=== PATIENT | male | born 1985 | race Caucasian/White ===

== ENCOUNTER 2017-03-29 19:27 | Emergency (ER) | payer OTHER ==
[~2017-03-29] VITALS: Ht 160 cm; Wt 70.0 kg
[~2017-03-29 19:27] MED LIST: LEVE500 PO
[2017-03-29 19:58] VITALS: BP 139/102; PULSE 140; RESP 20; TEMP 98.1; O2SAT 98
[2017-03-29 20:23] LABS: AUTOMATED NEUTROPHIL # 5.5 TH/MM3 (1.8-7.7); BASOPHIL # 0.1 TH/MM3 (0-0.2); BASOPHIL % 0.7 % (0.0-2.0); EOSINOPHIL # 0.1 TH/MM3 (0-0.4); EOSINOPHIL % 0.6 % (0.0-4.0); HEMATOCRIT 48.2 % (39.0-51.0); HEMOGLOBIN 16.4 GM/DL (13.0-17.0); LYMPH % 29.3 % (9.0-44.0); LYMPHOCYTE # 2.6 TH/MM3 (1.0-4.8); MEAN CELL VOLUME 89.8 FL (80.0-100.0); MEAN CORPUSCULAR HEMOGLOBIN 30.5 PG (27.0-34.0); MEAN PLATELET VOLUME 9.6 FL (7.0-11.0); MONO % 7.8 % (0.0-8.0); MONOCYTE # 0.7 TH/MM3 (0-0.9); NEUT % 61.6 % (16.0-70.0); PLATELET COUNT 207 TH/MM3 (150-450); RED BLOOD COUNT 5.37 MIL/MM3 (4.50-5.90); RED CELL DISTRIBUTION WIDTH 15.6 % (11.6-17.2)
[2017-03-29 21:01] LABS: ALBUMIN 4.3 GM/DL (3.4-5.0); ALKALINE PHOSPHATASE 92 U/L (45-117); ALT (GPT) 102 U/L (12-78); AST (GOT) 93 U/L (15-37); BLOOD UREA NITROGEN 9 MG/DL (7-18); CALCIUM 8.8 MG/DL (8.5-10.1); CHLORIDE 110 MEQ/L (98-107); CREATININE 0.78 MG/DL (0.60-1.30); GLOMERULAR FILTRATION RATE 116 ML/MIN (>89); GLUCOSE,RANDOM 72 MG/DL (74-106); SODIUM (NA) 142 MEQ/L (136-145); TOTAL BILIRUBIN ADULT 0.3 MG/DL (0.2-1.0); TOTAL PROTEIN 8.1 GM/DL (6.4-8.2)
[2017-03-29 21:02] LABS: ACETAMINOPHEN LESS THAN 2.0 MCG/ML (10.0-30.0)
[2017-03-29 22:35] VITALS: BP 133/59; PULSE 100; RESP 16; TEMP 98.2; O2SAT 95
--- NOTE | 2017-03-29 22:37 | PD ---
HPI Chief Complaint: Psychiatric Symptoms Time Seen by Provider: 20:26 Travel History International Travel<30 days: No Contact w/Intl Traveler<30days: No Traveled to known affect area: No History of Present Illness HPI 31-year-old white male presents emergency Department under Otero act by PD. Patient states that he had told the police magistrate he was going to walk out traffic. The patient states that he's been taking alcohol, smoking crack cocaine. He has been off his bipolar medicines. The patient states that his cousin just 2 weeks ago from overdose. The patient denies any homicidal ideation. He denies any toxic ingestions. Patient states that he has had a runny nose, cough and some slight congestion. No fever chills. No nausea vomiting. No abdominal pain. No shortness of breath or wheezing. PFSH Past Medical History Autoimmune Disease: No Bipolar Disorder: Yes Anxiety: Yes Depression: Yes Cancer: No Cardiovascular Problems: Yes ("HOLE IN HEART") Diabetes: No Diminished Hearing: No GERD: Yes Headaches: Yes Immune Disorder: No Implanted Vascular Access Dvce: No Kidney Stones: Yes Psychiatric: Yes (PTSD) Immunizations Current: Yes Migraines: Yes Schizophrenia: Yes Seizures: Yes Tetanus Vaccination: Unknown Past Surgical History Cardiac Surgery: Yes (PDA- OPEN HEART ) Social History Alcohol Use: Yes Tobacco Use: Yes (1/2 ppd) Substance Use: Yes (cocaine) Allergies-Medications (Allergen,Severity, Reaction): Coded Allergies: codeine (Unverified Allergy, Intermediate, itch, 11/21/16) tramadol (Unverified Allergy, Intermediate, seizures, 11/21/16) Reported Meds & Prescriptions Reported Meds & Active Scripts Active Keppra (Levetiracetam) 500 Mg Tab 500 Mg PO BID Review of Systems General / Constitutional: No: Fever Eyes: No: Visual changes HENT: Positive: Congestion, No: Headaches, Sore Throat, Earache Cardiovascular: No: Chest Pain or Discomfort Respiratory: Positive: Cough, No: Shortness of Breath Gastrointestinal: No: Nausea, Vomiting, Diarrhea, Abdominal Pain Genitourinary: No: Dysuria Musculoskeletal: No: Pain Skin: No Rash Neurologic: No: Weakness Psychiatric: Positive: Depression, Suicidal Ideations, Mood Disorder, Substance Abuse, No: Anxiety, Disorder of Thought, Homicidal Ideation Endocrine: No: Polydipsia Hematologic/Lymphatic: No: Easy Bruising Physical Exam Narrative GENERAL: Well-nourished, well-developed patient. SKIN: Warm and dry. HEAD: Normocephalic and atraumatic. EYES: No scleral icterus. No injection or drainage. ENT: No nasal drainage noted. Mucous membranes pink. Airway patent. NECK: Supple, trachea midline. Moves head freely without obvious discomfort. CARDIOVASCULAR: Regular rate and rhythm without murmurs, gallops, or rubs. RESPIRATORY: Breath sounds equal bilaterally. No accessory muscle use. GASTROINTESTINAL: Abdomen soft, non-tender, nondistended. EXTREMITIES: No cyanosis or edema. BACK: Nontender without obvious deformity. No CVA tenderness. NEURO: Patient is alert and oriented. no sensorimotor deficits. Nonfocal. Normal speech. PSYCH: No delusions. No auditory or visual hallucinations. Data Data Last Documented VS Vital Signs Date Time Temp Pulse Resp B/P (MAP) Pulse Ox O2 Delivery O2 Flow Rate FiO2 03/29/17 19:58 98.1 140 20 139/102 (114) 98 Room Air Orders Orders Complete Blood Count With Diff (03/29/17 19:44) Comprehensive Metabolic Panel (03/29/17 19:44) Psych Screen (03/29/17 19:44) Drug Screen, Random Urine (03/29/17 19:44) Alcohol (Ethanol) (03/29/17 19:44) Salicylates (Aspirin) (03/29/17 19:44) Tylenol (Acetaminophen) (03/29/17 19:44) Levetiracetam (03/29/17 19:44) Labs Laboratory Tests Test 03/29/17 20:00 White Blood Count 9.0 TH/MM3 Red Blood Count 5.37 MIL/MM3 Hemoglobin 16.4 GM/DL Hematocrit 48.2 % Mean Corpuscular Volume 89.8 FL Mean Corpuscular Hemoglobin 30.5 PG Mean Corpuscular Hemoglobin Concent 34.0 % Red Cell Distribution Width 15.6 % Platelet Count 207 TH/MM3 Mean Platelet Volume 9.6 FL Neutrophils (%) (Auto) 61.6 % Lymphocytes (%) (Auto) 29.3 % Monocytes (%) (Auto) 7.8 % Eosinophils (%) (Auto) 0.6 % Basophils (%) (Auto) 0.7 % Neutrophils # (Auto) 5.5 TH/MM3 Lymphocytes # (Auto) 2.6 TH/MM3 Monocytes # (Auto) 0.7 TH/MM3 Eosinophils # (Auto) 0.1 TH/MM3 Basophils # (Auto) 0.1 TH/MM3 CBC Comment DIFF FINAL Differential Comment Blood Urea Nitrogen 9 MG/DL Creatinine 0.78 MG/DL Random Glucose 72 MG/DL Total Protein 8.1 GM/DL Albumin 4.3 GM/DL Calcium Level 8.8 MG/DL Alkaline Phosphatase 92 U/L Aspartate Amino Transf (AST/SGOT) 93 U/L Alanine Aminotransferase (ALT/SGPT) 102 U/L Total Bilirubin 0.3 MG/DL Sodium Level 142 MEQ/L Potassium Level 3.9 MEQ/L Chloride Level 110 MEQ/L Carbon Dioxide Level 21.0 MEQ/L Anion Gap 11 MEQ/L Estimat Glomerular Filtration Rate 116 ML/MIN Salicylates Level 2.1 MG/DL Urine Opiates Screen NEG Acetaminophen Level LESS THAN 2.0 MCG/ML Urine Barbiturates Screen NEG Urine Amphetamines Screen NEG Urine Benzodiazepines Screen NEG Urine Cocaine Screen POS Urine Cannabinoids Screen POS Ethyl Alcohol Level 310 MG/DL MDM Medical Decision Making Medical Screen Exam Complete: Yes Emergency Medical Condition: Yes Medical Record Reviewed: Yes Interpretation(s) Laboratory Tests Test 03/29/17 20:00 White Blood Count 9.0 TH/MM3 Red Blood Count 5.37 MIL/MM3 Hemoglobin 16.4 GM/DL Hematocrit 48.2 % Mean Corpuscular Volume 89.8 FL Mean Corpuscular Hemoglobin 30.5 PG Mean Corpuscular Hemoglobin Concent 34.0 % Red Cell Distribution Width 15.6 % Platelet Count 207 TH/MM3 Mean Platelet Volume 9.6 FL Neutrophils (%) (Auto) 61.6 % Lymphocytes (%) (Auto) 29.3 % Monocytes (%) (Auto) 7.8 % Eosinophils (%) (Auto) 0.6 % Basophils (%) (Auto) 0.7 % Neutrophils # (Auto) 5.5 TH/MM3 Lymphocytes # (Auto) 2.6 TH/MM3 Monocytes # (Auto) 0.7 TH/MM3 Eosinophils # (Auto) 0.1 TH/MM3 Basophils # (Auto) 0.1 TH/MM3 CBC Comment DIFF FINAL Differential Comment Blood Urea Nitrogen 9 MG/DL Creatinine 0.78 MG/DL Random Glucose 72 MG/DL Total Protein 8.1 GM/DL Albumin 4.3 GM/DL Calcium Level 8.8 MG/DL Alkaline Phosphatase 92 U/L Aspartate Amino Transf (AST/SGOT) 93 U/L Alanine Aminotransferase (ALT/SGPT) 102 U/L Total Bilirubin 0.3 MG/DL Sodium Level 142 MEQ/L Potassium Level 3.9 MEQ/L Chloride Level 110 MEQ/L Carbon Dioxide Level 21.0 MEQ/L Anion Gap 11 MEQ/L Estimat Glomerular Filtration Rate 116 ML/MIN Salicylates Level 2.1 MG/DL Urine Opiates Screen NEG Acetaminophen Level LESS THAN 2.0 MCG/ML Urine Barbiturates Screen NEG Urine Amphetamines Screen NEG Urine Benzodiazepines Screen NEG Urine Cocaine Screen POS Urine Cannabinoids Screen POS Ethyl Alcohol Level 310 MG/DL Differential Diagnosis MDM: High Differential diagnoses: Schizophrenia, schizoaffective disorder, bipolar, anxiety, depression, adjustment reaction, mood disorder NOS, ODD, depressive disorder NOS, dementia, dementia with agitation, psychosis NOS, substance induced mood disorder, DMDD, Asperger syndrome, infection,electrolyte abnormality, malingering. Narrative Course Mental health screening discussed with the patient. Psychiatric screen ordered. The patient is been medically cleared. This is medical clearance for psychiatric admission, polysubstance abuse Diagnosis Primary Impression: Medical clearance for psychiatric admission Additional Impression: Polysubstance abuse Condition: Stable Todd Khan Mar 29, 2017 22:37
[2017-03-30 02:14] VITALS: BP 138/63; PULSE 72; RESP 17; O2SAT 97
[2017-03-30 06:21] VITALS: BP 143/62; PULSE 63; RESP 18; TEMP 98.6; O2SAT 96
[2017-03-30] MEDS ORDERED: levETIRAcetam 500 MG TAB PO ONE (07:30)
[2017-03-30] MEDS ORDERED: LEVE500 PO (08:45)
--- NOTE | 2017-03-30 08:47 | PD ---
Physical Exam Date Seen by Provider: Mar 30, 2017 Narrative 31-year-old male presented to the emergency department as a Otero act. Patient was evaluated medically cleared to see psych. I received a call from LEEANNA Alberto he stated that he may be placed at [facility] today and required a prescription of Keppra. She stated that patient had a seizure last in February and has been controlled on this medication. Keppra 500 mg twice a day prescribed for 30 days so patient may go for definitive care. Advised follow up with his PCP or neurologist. Data Data Last Documented VS Vital Signs Date Time Temp Pulse Resp B/P (MAP) Pulse Ox O2 Delivery O2 Flow Rate FiO2 03/30/17 14:29 03/30/17 10:42 97.4 64 18 98 Room Air Orders Orders Complete Blood Count With Diff (03/29/17 19:44) Comprehensive Metabolic Panel (03/29/17 19:44) Psych Screen (03/29/17 19:44) Drug Screen, Random Urine (03/29/17 19:44) Alcohol (Ethanol) (03/29/17 19:44) Salicylates (Aspirin) (03/29/17 19:44) Tylenol (Acetaminophen) (03/29/17 19:44) Levetiracetam (03/29/17 19:44) Diet Regular Basic (03/30/17 Breakfast) Levetiracetam (Keppra) (03/30/17 07:30) Diet Regular Basic (03/30/17 Lunch) Diet Regular Basic (03/30/17 Dinner) Labs Laboratory Tests Test 03/29/17 20:00 White Blood Count 9.0 TH/MM3 Red Blood Count 5.37 MIL/MM3 Hemoglobin 16.4 GM/DL Hematocrit 48.2 % Mean Corpuscular Volume 89.8 FL Mean Corpuscular Hemoglobin 30.5 PG Mean Corpuscular Hemoglobin Concent 34.0 % Red Cell Distribution Width 15.6 % Platelet Count 207 TH/MM3 Mean Platelet Volume 9.6 FL Neutrophils (%) (Auto) 61.6 % Lymphocytes (%) (Auto) 29.3 % Monocytes (%) (Auto) 7.8 % Eosinophils (%) (Auto) 0.6 % Basophils (%) (Auto) 0.7 % Neutrophils # (Auto) 5.5 TH/MM3 Lymphocytes # (Auto) 2.6 TH/MM3 Monocytes # (Auto) 0.7 TH/MM3 Eosinophils # (Auto) 0.1 TH/MM3 Basophils # (Auto) 0.1 TH/MM3 CBC Comment DIFF FINAL Differential Comment Blood Urea Nitrogen 9 MG/DL Creatinine 0.78 MG/DL Random Glucose 72 MG/DL Total Protein 8.1 GM/DL Albumin 4.3 GM/DL Calcium Level 8.8 MG/DL Alkaline Phosphatase 92 U/L Aspartate Amino Transf (AST/SGOT) 93 U/L Alanine Aminotransferase (ALT/SGPT) 102 U/L Total Bilirubin 0.3 MG/DL Sodium Level 142 MEQ/L Potassium Level 3.9 MEQ/L Chloride Level 110 MEQ/L Carbon Dioxide Level 21.0 MEQ/L Anion Gap 11 MEQ/L Estimat Glomerular Filtration Rate 116 ML/MIN Salicylates Level 2.1 MG/DL Urine Opiates Screen NEG Acetaminophen Level LESS THAN 2.0 MCG/ML Urine Barbiturates Screen NEG Urine Amphetamines Screen NEG Urine Benzodiazepines Screen NEG Urine Cocaine Screen POS Urine Cannabinoids Screen POS Ethyl Alcohol Level 310 MG/DL MDM Supervised Visit with CHRISTINE: No Diagnosis Primary Impression: Medical clearance for psychiatric admission Additional Impression: Polysubstance abuse Scripts Levetiracetam (Keppra) 500 Mg Tab 500 MG PO BID for Control Seizures for 30 Days, #60 TAB 0 Refills Prov: Moi Juarez MD 03/30/17 Condition: Stable Sherin Galarza Mar 30, 2017 08:47
[2017-03-30 10:42] VITALS: BP_SYST 117; BP_SYST 155; BP_DIAS 67; BP_DIAS 75; PULSE 64; PULSE 88; RESP 18; TEMP 97.4; O2SAT 98; O2SAT 99
== END 2017-03-30 15:29 ==
LOC: NEPJ 19:27
DX: F14.10 Cocaine abuse, uncomplicated (principal); F31.9 Bipolar disorder, unspecified; R09.89 Other specified symptoms and signs involving the circulatory and respiratory systems; R05 Cough; R09.81 Nasal congestion; K21.9 Gastro-esophageal reflux disease without esophagitis; F43.10 Post-traumatic stress disorder, unspecified; F20.9 Schizophrenia, unspecified; R56.9 Unspecified convulsions
CPT/HCPCS: 80053; 80177; 80307; 85025; 99285

== ENCOUNTER 2017-08-03 22:18 | Emergency (ER) | payer SELFPAY ==
[2017-08-03 22:39] VITALS: BP 135/70; PULSE 85; RESP 18; TEMP 98.4; O2SAT 100
--- NOTE | 2017-08-03 23:07 | PD ---
HPI Chief Complaint: Psychiatric Symptoms Time Seen by Provider: 22:56 Travel History International Travel<30 days: No Contact w/Intl Traveler<30days: No Traveled to known affect area: No History of Present Illness HPI 32-year-old male who reports a history of depression and schizoaffective disorder. He presents for evaluation of depression and suicidal ideation. This is been worsening over the past few days. Specifically he has thoughts of hanging himself. He reports over the past 2 weeks he has been having worsening hallucinations, seeing faces and hearing voices are not there. He has had occasional thoughts of killing his "baby mama" as well. He does not currently have a psychiatrist that he sees. He reports that recently he has been injecting methamphetamines on a regular basis and 2 days ago believes that he missed a vein in his right forearm. Since then he has had increased pain and redness of the skin of the right forearm and proximal arm. Pain is aching and worse with palpation. Denies any fevers or chills. Denies any other complaints at this time. PFSH Past Medical History Autoimmune Disease: No Bipolar Disorder: Yes Anxiety: Yes Depression: Yes Cancer: No Cardiovascular Problems: Yes ("HOLE IN HEART") Diabetes: No Diminished Hearing: No GERD: Yes Headaches: Yes Immune Disorder: No Implanted Vascular Access Dvce: No Kidney Stones: Yes Psychiatric: Yes (PTSD) Immunizations Current: Yes Migraines: Yes Schizophrenia: Yes Seizures: Yes Tetanus Vaccination: Unknown Influenza Vaccination: No Past Surgical History Cardiac Surgery: Yes (PDA- OPEN HEART ) Social History Alcohol Use: Yes Tobacco Use: Yes (1/2 ppd) Substance Use: Yes (cocaine, ivda) Allergies-Medications (Allergen,Severity, Reaction): Coded Allergies: codeine (Unverified Allergy, Intermediate, itch, 08/03/17) tramadol (Unverified Allergy, Intermediate, seizures, 08/03/17) Reported Meds & Prescriptions Reported Meds & Active Scripts Active Keppra (Levetiracetam) 500 Mg Tab 500 Mg PO BID Review of Systems Except as stated in HPI: all other systems reviewed are Neg Physical Exam Narrative GENERAL: Well developed well-nourished male in no acute distress SKIN: Warm and dry. There is no area of erythema noted on the volar aspect of the proximal right forearm as well as the right arm just proximal to the antecubital region. Needle track garcia are noted on both arms. HEAD: Atraumatic. Normocephalic. EYES: Pupils equal and round. No scleral icterus. No injection or drainage. ENT: No nasal bleeding or discharge. Mucous membranes pink and moist. NECK: Trachea midline. No JVD. CARDIOVASCULAR: Regular rate and rhythm. No murmur appreciated. RESPIRATORY: No accessory muscle use. Clear to auscultation. Breath sounds equal bilaterally. GASTROINTESTINAL: Abdomen soft, non-tender, nondistended. Hepatic and splenic margins not palpable. MUSCULOSKELETAL: Skin as noted above. There is no edema or joint effusion. NEUROLOGICAL: Awake and alert. No obvious cranial nerve deficits. Motor grossly within normal limits. Normal speech. Data Data Last Documented VS Vital Signs Date Time Temp Pulse Resp B/P (MAP) Pulse Ox O2 Delivery O2 Flow Rate FiO2 08/03/17 22:39 98.4 85 18 135/70 (91) 100 Orders Orders Complete Blood Count With Diff (08/03/17 23:03) Comprehensive Metabolic Panel (08/03/17 23:03) Thyroid Stimulating Hormone (08/03/17 23:03) Psych Screen (08/03/17 23:03) Drug Screen, Random Urine (08/03/17 23:03) Alcohol (Ethanol) (08/03/17 23:03) Salicylates (Aspirin) (08/03/17 23:03) Tylenol (Acetaminophen) (08/03/17 23:03) Asp:No Reaction To [place]/Vanc (Asp Crit (08/04/17 00:15) Asp: Does Not Meet Inpt Admit (Asp Crit: (08/04/17 00:15) Asp: Iv Antibiotics Admit Only (Asp Crit (08/04/17 00:15) Asp: Location Of [place]av Admin (Asp Crit: (08/04/17 00:15) Pharmacy Information ([facility] [place] [facility] Info (08/04/17 00:15) Dal[place]avancin Inj (Dalvance Inj) (08/04/17 00:04) Labs Laboratory Tests Test 08/03/17 23:20 White Blood Count 7.8 TH/MM3 Red Blood Count 4.54 MIL/MM3 Hemoglobin 13.2 GM/DL Hematocrit 39.1 % Mean Corpuscular Volume 86.1 FL Mean Corpuscular Hemoglobin 29.0 PG Mean Corpuscular Hemoglobin Concent 33.7 % Red Cell Distribution Width 13.1 % Platelet Count 211 TH/MM3 Mean Platelet Volume 8.9 FL Neutrophils (%) (Auto) 73.2 % Lymphocytes (%) (Auto) 19.2 % Monocytes (%) (Auto) 6.3 % Eosinophils (%) (Auto) 0.9 % Basophils (%) (Auto) 0.4 % Neutrophils # (Auto) 5.7 TH/MM3 Lymphocytes # (Auto) 1.5 TH/MM3 Monocytes # (Auto) 0.5 TH/MM3 Eosinophils # (Auto) 0.1 TH/MM3 Basophils # (Auto) 0.0 TH/MM3 CBC Comment DIFF FINAL Differential Comment Blood Urea Nitrogen 8 MG/DL Creatinine 1.01 MG/DL Random Glucose 93 MG/DL Total Protein 7.1 GM/DL Albumin 3.1 GM/DL Calcium Level 8.6 MG/DL Alkaline Phosphatase 89 U/L Aspartate Amino Transf (AST/SGOT) 17 U/L Alanine Aminotransferase (ALT/SGPT) 23 U/L Total Bilirubin 0.2 MG/DL Sodium Level 144 MEQ/L Potassium Level 3.5 MEQ/L Chloride Level 104 MEQ/L Carbon Dioxide Level 30.2 MEQ/L Anion Gap 10 MEQ/L Estimat Glomerular Filtration Rate 86 ML/MIN Thyroid Stimulating Hormone 3rd Gen 1.120 uIU/ML Salicylates Level LESS THAN 1.7 MG/DL Urine Opiates Screen NEG Acetaminophen Level LESS THAN 2.0 MCG/ML Urine Barbiturates Screen NEG Urine Amphetamines Screen NEG Urine Benzodiazepines Screen NEG Urine Cocaine Screen POS Urine Cannabinoids Screen POS Ethyl Alcohol Level 39 MG/DL [facility] Medical Decision Making Medical Screen Exam Complete: Yes Emergency Medical Condition: Yes Medical Record Reviewed: Yes Differential Diagnosis Substance-induced mood disorder, acute psychosis, adjustment reaction, major depressive disorder, schizophrenia, schizoaffective disorder Narrative Course 32-year-old male presents with hallucinations, suicidal ideation for the past several days. He also has cellulitis in the right arm secondary to IV drug abuse. No evidence of discrete abscess, septic arthritis. He is not febrile or tachycardic. Lab work is reassuring. The cellulitis will be treated with IV Dalvance. The patient is medically cleared for psychiatric disposition. Diagnosis Primary Impression: Medical clearance for psychiatric admission Additional Impressions: Cellulitis IVDU (intravenous drug user) Nathan Capone Aug 03, 2017 23:07
[2017-08-03 23:47] LABS: AUTOMATED NEUTROPHIL # 5.7 TH/MM3 (1.8-7.7); BASOPHIL % 0.4 % (0.0-2.0); EOSINOPHIL # 0.1 TH/MM3 (0-0.4); EOSINOPHIL % 0.9 % (0.0-4.0); HEMATOCRIT 39.1 % (39.0-51.0); HEMOGLOBIN 13.2 GM/DL (13.0-17.0); LYMPH % 19.2 % (9.0-44.0); LYMPHOCYTE # 1.5 TH/MM3 (1.0-4.8); MEAN CELL VOLUME 86.1 FL (80.0-100.0); MEAN CORPUSCULAR HGB CONC 33.7 % (32.0-36.0); MEAN PLATELET VOLUME 8.9 FL (7.0-11.0); MONO % 6.3 % (0.0-8.0); MONOCYTE # 0.5 TH/MM3 (0-0.9); NEUT % 73.2 % (16.0-70.0); PLATELET COUNT 211 TH/MM3 (150-450); RED BLOOD COUNT 4.54 MIL/MM3 (4.50-5.90); RED CELL DISTRIBUTION WIDTH 13.1 % (11.6-17.2); WHITE BLOOD COUNT 7.8 TH/MM3 (4.0-11.0)
[2017-08-03 23:55] LABS: ALBUMIN 3.1 GM/DL (3.4-5.0); ALT (GPT) 23 U/L (12-78); AST (GOT) 17 U/L (15-37); BICARBONATE 30.2 MEQ/L (21.0-32.0); BLOOD UREA NITROGEN 8 MG/DL (7-18); CALCIUM 8.6 MG/DL (8.5-10.1); CHLORIDE 104 MEQ/L (98-107); CREATININE 1.01 MG/DL (0.60-1.30); GLOMERULAR FILTRATION RATE 86 ML/MIN (>89); GLUCOSE,RANDOM 93 MG/DL (74-106); SODIUM (NA) 144 MEQ/L (136-145)
[2017-08-04] MEDS ORDERED: DALBAVANCIN INJ 1,500 MG in DEXTROSE 5% IN WATE 500 ML INJ 500 ML IV STA ×2 (00:04)
[2017-08-04 00:05] LABS: ALKALINE PHOSPHATASE 89 U/L (45-117); TOTAL BILIRUBIN ADULT 0.2 MG/DL (0.2-1.0); TOTAL PROTEIN 7.1 GM/DL (6.4-8.2)
[2017-08-04] MEDS ORDERED: ASP: Location of Dalbavancin administration OTHER ONE (00:15)
[2017-08-04] MEDS ORDERED: PHARMACY INFORMATION XX ONE (00:15)
[2017-08-04] MEDS ORDERED: ASP: Only reason for admit - IV antibiotics OTHER ONE (00:15)
[2017-08-04] MEDS ORDERED: ASP: No known hypersensitivity to Vanco, Telavancin, Dalbavancin OTHER ONE (00:15)
[2017-08-04] MEDS ORDERED: ASP: Does not meet inpatient admission criteria OTHER ONE (00:15)
[2017-08-04 00:16] LABS: ACETAMINOPHEN LESS THAN 2.0 MCG/ML (10.0-30.0)
[2017-08-04 17:23] VITALS: BP 131/87; PULSE 56; RESP 16; O2SAT 99
[2017-08-04 20:50] VITALS: BP 150/74; PULSE 65; RESP 16; TEMP 98.2; O2SAT 98
[2017-08-05 00:28] VITALS: BP 138/94; PULSE 50; RESP 18; TEMP 98.6; O2SAT 100
--- NOTE | 2017-08-05 08:16 | PD ---
Physical Exam Date Seen by Provider: Aug 05, 2017 Time Seen by Provider: 08:15 Narrative 32-year-old male previously medically cleared for psychiatric evaluation, has been evaluated by psychiatric staff and deemed psychiatrically stable for discharge at this time. Patient remains medically stable at this time. Patient has been treated with dowel dance for his cellulitis. Follow-up will be based on the psychiatric note. Patient can return to emergency department with worsening cellulitis symptoms as needed. Data Data Last Documented VS Vital Signs Date Time Temp Pulse Resp B/P (MAP) Pulse Ox O2 Delivery O2 Flow Rate FiO2 08/05/17 00:28 98.6 50 18 138/94 (109) 100 Room Air Orders Orders Complete Blood Count With Diff (08/03/17 23:03) Comprehensive Metabolic Panel (08/03/17 23:03) Thyroid Stimulating Hormone (08/03/17 23:03) Psych Screen (08/03/17 23:03) Drug Screen, Random Urine (08/03/17 23:03) Alcohol (Ethanol) (08/03/17 23:03) Salicylates (Aspirin) (08/03/17 23:03) Tylenol (Acetaminophen) (08/03/17 23:03) Asp:No Reaction To [place]/Vanc (Asp Crit (08/04/17 00:15) Asp: Does Not Meet Inpt Admit (Asp Crit: (08/04/17 00:15) Asp: Iv Antibiotics Admit Only (Asp Crit (08/04/17 00:15) Asp: Location Of [place] Admin (Asp Crit: (08/04/17 00:15) Pharmacy Information ([facility] [place] [facility] Info (08/04/17 00:15) [place]ancin Inj (Dalvance Inj) (08/04/17 00:04) Diet Regular Basic (08/04/17 Breakfast) Diet Regular Basic (08/04/17 Lunch) Diet Regular Basic (08/04/17 Dinner) Diet Regular Basic (08/05/17 Breakfast) Labs Laboratory Tests Test 08/03/17 23:20 White Blood Count 7.8 TH/MM3 Red Blood Count 4.54 MIL/MM3 Hemoglobin 13.2 GM/DL Hematocrit 39.1 % Mean Corpuscular Volume 86.1 FL Mean Corpuscular Hemoglobin 29.0 PG Mean Corpuscular Hemoglobin Concent 33.7 % Red Cell Distribution Width 13.1 % Platelet Count 211 TH/MM3 Mean Platelet Volume 8.9 FL Neutrophils (%) (Auto) 73.2 % Lymphocytes (%) (Auto) 19.2 % Monocytes (%) (Auto) 6.3 % Eosinophils (%) (Auto) 0.9 % Basophils (%) (Auto) 0.4 % Neutrophils # (Auto) 5.7 TH/MM3 Lymphocytes # (Auto) 1.5 TH/MM3 Monocytes # (Auto) 0.5 TH/MM3 Eosinophils # (Auto) 0.1 TH/MM3 Basophils # (Auto) 0.0 TH/MM3 CBC Comment DIFF FINAL Differential Comment Blood Urea Nitrogen 8 MG/DL Creatinine 1.01 MG/DL Random Glucose 93 MG/DL Total Protein 7.1 GM/DL Albumin 3.1 GM/DL Calcium Level 8.6 MG/DL Alkaline Phosphatase 89 U/L Aspartate Amino Transf (AST/SGOT) 17 U/L Alanine Aminotransferase (ALT/SGPT) 23 U/L Total Bilirubin 0.2 MG/DL Sodium Level 144 MEQ/L Potassium Level 3.5 MEQ/L Chloride Level 104 MEQ/L Carbon Dioxide Level 30.2 MEQ/L Anion Gap 10 MEQ/L Estimat Glomerular Filtration Rate 86 ML/MIN Thyroid Stimulating Hormone 3rd Gen 1.120 uIU/ML Salicylates Level LESS THAN 1.7 MG/DL Urine Opiates Screen NEG Acetaminophen Level LESS THAN 2.0 MCG/ML Urine Barbiturates Screen NEG Urine Amphetamines Screen NEG Urine Benzodiazepines Screen NEG Urine Cocaine Screen POS Urine Cannabinoids Screen POS Ethyl Alcohol Level 39 MG/DL [facility] Medical Record Reviewed: Yes Supervised Visit with CHRISTINE: Yes Narrative Course 32-year-old male previously medically cleared for psychiatric evaluation, has been evaluated by psychiatric staff and deemed psychiatrically stable for discharge at this time. Patient remains medically stable at this time. Patient has been treated with dowel dance for his cellulitis. Follow-up will be based on the psychiatric note. Patient can return to emergency department with worsening cellulitis symptoms as needed. Diagnosis Primary Impression: Medical clearance for psychiatric admission Additional Impressions: Cellulitis IVDU (intravenous drug user) Patient Instructions: [place]avancin (By injection), General Instructions Condition: Stable Vaibhav Villafuerte Aug 05, 2017 08:16
--- NOTE | 2017-08-05 12:11 | PD.PSY.CON ---
Provisional Diagnosis Admission Date De [place] I. Polysubstance dependence including cocaine, amphetamines, alcohol, cannabis, history of bipolar disorder, De Leon II. Antisocial personality disorder History of Present Illness Service Psychiatry Consult Requested By ER Reason for Consult Suicidal ideation Primary Care Physician No Primary Care Physician HPI Patient was seen this morning at 7:30 AM The patient is 32-year-old man, homeless, single, unemployed, with self-reported psychiatric history of bipolar disorder, polysubstance dependence including cocaine, amphetamines, alcohol and cannabis, multiple ER visits, psychiatric hospitalizations, suicide attempts, self cutting behavior without SI , aggressive behavior, no significant medical history, who reports a history of depression and schizoaffective disorder. He presents for evaluation of depression and suicidal ideation. This is been worsening over the past few days. Specifically he has thoughts of hanging himself. He reports over the past 2 weeks he has been having worsening hallucinations, seeing faces and hearing voices are not there. He has had occasional thoughts of killing his "baby mama" as well. He does not currently have a psychiatrist that he sees. He reports that recently he has been injecting methamphetamines on a regular basis and 2 days ago believes that he missed a vein in his right forearm. Since then he has had increased pain and redness of the skin of the right forearm and proximal arm. However, today on psychiatric evaluation, the patient denies depression, he does report occasional visual and auditory hallucinations "especially when using drugs". Patient seems to be motivated to engage in detox/rehabilitation. At this moment he denies suicidal and was ideation, he denies visual and auditory hallucinations. Past Family Social History Coded Allergies: codeine (Unverified Allergy, Intermediate, itch, 08/03/17) tramadol (Unverified Allergy, Intermediate, seizures, 08/03/17) Active Scripts Levetiracetam (Keppra) 500 Mg Tab, 500 MG PO BID for Control Seizures, #60 TAB 0 Refills Prov:Myron Villalobos MD 03/02/16 Discontinued Scripts Levetiracetam (Keppra) 500 Mg Tab, 500 MG PO BID for Control Seizures for 30 Days, #60 TAB 0 Refills Prov:oMi Juarez MD 03/30/17 Physical Exam Vital Signs Vital Signs Date Time Temp Pulse Resp B/P (MAP) Pulse Ox O2 Delivery O2 Flow Rate FiO2 08/05/17 10:07 08/05/17 00:28 98.6 50 18 100 Room Air I/O 08/05/17 08/05/17 08/06/17 08:00 16:00 00:00 Intake Total 590 ml Balance 590 ml Mental Status Examination Appearance: Appropriate Consciousness: Alert Orientation: x4 Motor Activity: Normal gait Speech: Unremarkable Language: Adequate Fund of Knowledge: Adequate Attention and Concentration: Adequate Memory: Unremarkable Mood: Appropriate Affect: Appropriate Thought Process & Associations: Intact Thought Content: Appropriate Hallucination Type: None Delusion Type: None Suicidal Ideation: No Suicidal Plan: No Suicidal Intention: No Homicidal Ideation: No Homicidal Plan: No Homicidal Intention: No Insight: Adequate Judgment: Adequate Assessment & Plan Problem List: (1) Polysubstance abuse ICD Codes: F19.10 - Other psychoactive substance abuse, uncomplicated Status: Acute Assessment & Plan: On psychiatric evaluation today patient seems to be clinically sober. The patient report that he has been having visual and auditory hallucinations in the context of intoxication with amphetamines, cocaine, cannabis and alcohol. He denies hearing voices or having visual hallucinations at this moment. He denies suicidal and homicidal ideation at the moment. Patient reports that he wants to go to detox. Patient has a long history of persistent polysubstance use, noncompliant with psychotropics, noncompliant with recommendations, poor impulse control, aggressive behavior. He does not meet criteria for involuntary psychiatric admission. He would really benefit of detox/rehab. He will be referred to [facility]. Assessment & Plan Estimated LOS: Soto Pinto MD Aug 05, 2017 12:11
== END 2017-08-05 10:06 | disposition home or self-care (01) ==
LOC: NEPD 22:18 → NEPJ 08-05 10:06
DX: R45.851 Suicidal ideations (principal); L03.113 Cellulitis of right upper limb; F19.10 Other psychoactive substance abuse, uncomplicated; Z79.899 Other long term (current) drug therapy
CPT/HCPCS: 80053; 80307; 84443; 85025; 96365; 99284; J0875; J7060

== ENCOUNTER 2017-08-22 04:52 | Emergency (ER) | payer SELFPAY ==
[~2017-08-22] VITALS: Ht 160 cm; Wt 70.0 kg
[2017-08-22 04:54] VITALS: BP 170/76; PULSE 89; RESP 18; TEMP 98.4; O2SAT 99
[2017-08-22] MEDS ORDERED: DOXY100C PO (05:09)
[2017-08-22] MEDS ORDERED: BACT800T5 PO (05:09)
[2017-08-22] MEDS ORDERED: IBUPROFEN 800 MG TAB PO ONE (05:15)
[2017-08-22] MEDS ORDERED: DOXYCYCLINE HYCLATE 100 MG CAP PO ONE (05:15)
[2017-08-22] MEDS ORDERED: SULFAMETHOXAZOLE-TRIMETHOPRIM DS 800-160 MG TAB PO ONE (05:15)
--- NOTE | 2017-08-22 05:15 | PD ---
HPI Chief Complaint: Bite or Sting Time Seen by Provider: 05:05 Travel History International Travel<30 days: No Contact w/Intl Traveler<30days: No Traveled to known affect area: No History of Present Illness HPI 32-year-old white male presents emergency department by EMS we will complains of a right hand infection. Patient states that he uses IV drugs as well as smoking methamphetamine. Patient states that he is noted a area of redness and swelling on the dorsum of his right hand over the past few days. Pain is mild to moderate. No exacerbating or alleviating factors. Up-to-date with immunizations. No fever chills. PFSH Past Medical History Autoimmune Disease: No Bipolar Disorder: Yes Anxiety: Yes Depression: Yes Cancer: No Cardiovascular Problems: Yes ("HOLE IN HEART") Diabetes: No Diminished Hearing: No GERD: Yes Headaches: Yes Immune Disorder: No Implanted Vascular Access Dvce: No Kidney Stones: Yes Psychiatric: Yes (PTSD) Immunizations Current: Yes Migraines: Yes Schizophrenia: Yes Seizures: Yes Tetanus Vaccination: < 5 Years Past Surgical History Cardiac Surgery: Yes (PDA- OPEN HEART ) Social History Alcohol Use: Yes Tobacco Use: Yes (04/10 ppd) Substance Use: Yes (cocaine, ivda) Allergies-Medications (Allergen,Severity, Reaction): Coded Allergies: codeine (Unverified Allergy, Intermediate, itch, 08/22/17) tramadol (Unverified Allergy, Intermediate, seizures, 08/22/17) Reported Meds & Prescriptions Reported Meds & Active Scripts Active Bactrim DS (Sulfamethoxazole-Trimethoprim) 800-160 Mg Tab 1 Tab PO BID Doxycycline Hyclate 100 Mg Cap 100 Mg PO BID Keppra (Levetiracetam) 500 Mg Tab 500 Mg PO BID Review of Systems General / Constitutional: No: Fever Eyes: No: Visual changes HENT: No: Headaches Cardiovascular: No: Chest Pain or Discomfort Respiratory: No: Shortness of Breath Gastrointestinal: No: Abdominal Pain Genitourinary: No: Dysuria Musculoskeletal: Positive: Pain Skin: Positive Lesions, No Rash Neurologic: No: Weakness Psychiatric: No: Depression Endocrine: No: Polydipsia Hematologic/Lymphatic: No: Easy Bruising Physical Exam Narrative GENERAL: Well-developed, well-nourished in no acute distress. Nontoxic appearing. HEAD: Normocephalic, atraumatic. EYES: Pupils equal round and reactive. Extraocular motions intact. No scleral icterus. No injection or drainage. ENT: TMs clear without erythema. The external auditory canals clear. Nose: clear . Posterior pharynx is pink and moist. No tonsillar edema or exudate. Uvula midline. Airway patent. NECK: Trachea midline.Supple, nontender, moves head freely. No central bony tenderness or spasm. CARDIOVASCULAR: Regular rate and rhythm without murmurs, gallops, or rubs. RESPIRATORY: Clear to auscultation. Breath sounds equal bilaterally. No wheezes , rales, or rhonchi. GASTROINTESTINAL: Abdomen soft, non-tender, nondistended. No hepato-splenomegaly , or palpable masses. No guarding. EXTREMITIES: No clubbing, cyanosis, or edema. No joint tenderness, effusion, or edema noted. BACK: Nontender without deformity or crepitance. No flank tenderness. Skin: Patient has a 2 x 2 centimeter fluctuant abscess to the dorsum of the right hand over the second metacarpal region. It is tender, warm and red. No pointing. When her hand is unremarkable. Data Data Last Documented VS Vital Signs Date Time Temp Pulse Resp B/P (MAP) Pulse Ox O2 Delivery O2 Flow Rate FiO2 08/22/17 04:54 98.4 89 18 170/76 (107) 99 Orders Orders Ed Discharge Order (08/22/17 05:07) Sulfamet-Trimeth Ds 800-160 Mg (Bactrim (08/22/17 05:15) Doxycycline (Vibramycin) (08/22/17 05:15) Ibuprofen (Motrin) (08/22/17 05:15) MDM Medical Decision Making Medical Screen Exam Complete: Yes Emergency Medical Condition: Yes Medical Record Reviewed: Yes Differential Diagnosis MDM: High Differential diagnoses: Abscess, folliculitis, cellulitis, lymphangitis, abrasion, contact dermatitis Narrative Course an incision and drainage has been performed. Patient given Bactrim DS and doxycycline 100 mg p.o. Procedures Procedure Narrative I&D abscess: After the risks and benefits were discussed the following procedure was performed. The skin is prepped and draped in the usual sterile fashion using Hibiclens. The abscess is anesthetized with 1% lidocaine with epinephrine. After adequate anesthesia, an 11 blade scalpel is used to make a 2 centimeter central incision. Perulant material is expressed and cultured. A clean dressing is applied. The patient tolerated the procedure well. There was no complications. Follow-up instructions were given to the patient. Diagnosis Primary Impression: Right hand abscess Additional Impression: Polysubstance abuse Patient Instructions: General Instructions Additional Instructions: Rest. Elevation. keep clean and dry. Warm compresses. Daily wound care with soap, water and Neosporin. Three Advil every 6 hours. Doxycycline, Septra DS. Follow-up with a primary care doctor in one week. Return to the ER for any problems. Med/Other Pt SpecificInfo: Prescription(s) given Scripts Sulfamethoxazole-Trimethoprim (Bactrim DS) 800-160 Mg Tab 1 TAB PO BID for Infection, #20 TAB 0 Refills Prov: Carmen Oropeza MD 08/22/17 Doxycycline Hyclate (Doxycycline Hyclate) 100 Mg Cap 100 MG PO BID for Infection, #20 CAP 0 Refills Prov: Carmen Oropeza MD 08/22/17 Disposition: 01 DISCHARGE HOME Condition: Stable Todd Khan August 22, 2017 05:15
== END 2017-08-22 05:19 | disposition home or self-care (01) ==
LOC: NEPD 04:52
DX: L02.511 Cutaneous abscess of right hand (principal); F19.10 Other psychoactive substance abuse, uncomplicated; F15.10 Other stimulant abuse, uncomplicated; F31.9 Bipolar disorder, unspecified; F43.10 Post-traumatic stress disorder, unspecified; F20.9 Schizophrenia, unspecified; F17.210 Nicotine dependence, cigarettes, uncomplicated; Z87.442 Personal history of urinary calculi; Z88.5 Allergy status to narcotic agent; Z88.8 Allergy status to other drugs, medicaments and biological substances
CPT/HCPCS: 10060

== ENCOUNTER 2017-08-28 19:29 | Emergency (ER) | payer SELFPAY ==
[~2017-08-28] VITALS: Ht 160 cm; Wt 68.0 kg
[~2017-08-28 19:29] MED LIST changes: +BACT800T5 PO; +DOXY100C PO
[2017-08-28 19:45] VITALS: BP 135/70; PULSE 95; RESP 16; TEMP 98.8; O2SAT 96
[2017-08-28 20:02] VITALS: BP 144/68; PULSE 86; RESP 18; TEMP 98.2; O2SAT 97
[2017-08-28] MEDS ORDERED: SODIUM CHLOR 0.9% 1000 ML INJ 1,000 ML IV SCH (20:12)
--- NOTE | 2017-08-28 20:17 | PD ---
HPI Chief Complaint: Skin Problem Time Seen by Provider: 20:04 Travel History International Travel<30 days: No Contact w/Intl Traveler<30days: No Traveled to known affect area: No History of Present Illness HPI This is a 32-year-old male who presented for evaluation area of pain and redness on the medial aspect of the right leg. He reports history of IV drug abuse, most recently he injected methamphetamines last week. He typically uses his hands and arms but he believes that he may have injected meth into the medial aspect of his right leg in an attempt to find the vein after he missed a vein in his hand. He reports over the past 3 days he has had pain and redness to the medial aspect of the right leg. Pain is throbbing and worse with palpation. He denies any fevers or chills. He has had some nausea. He denies any injury to the leg. He denies any numbness or tingling. Symptoms are moderate, aggravated by palpation. He has no other complaints at this time. PFSH Past Medical History Autoimmune Disease: No Bipolar Disorder: Yes Anxiety: Yes Depression: Yes Cancer: No Cardiovascular Problems: Yes ("HOLE IN HEART") Diabetes: No Diminished Hearing: No GERD: Yes Headaches: Yes Immune Disorder: No Implanted Vascular Access Dvce: No Kidney Stones: Yes Psychiatric: Yes (PTSD) Immunizations Current: Yes Migraines: Yes Schizophrenia: Yes Seizures: Yes Tetanus Vaccination: Unknown Influenza Vaccination: No Past Surgical History Cardiac Surgery: Yes (PDA- OPEN HEART ) Social History Alcohol Use: Yes Tobacco Use: Yes (1/2 ppd) Substance Use: Yes (cocaine, ivda) Allergies-Medications (Allergen,Severity, Reaction): Coded Allergies: codeine (Unverified Allergy, Intermediate, itch, 08/22/17) tramadol (Unverified Allergy, Intermediate, seizures, 08/22/17) Reported Meds & Prescriptions Reported Meds & Active Scripts Active Keflex (Cephalexin) 500 Mg Cap 500 Mg PO Q8H Bactrim DS (Sulfamethoxazole-Trimethoprim) 800-160 Mg Tab 1 Tab PO BID Keppra (Levetiracetam) 500 Mg Tab 500 Mg PO BID Review of Systems Except as stated in HPI: all other systems reviewed are Neg Physical Exam Narrative GENERAL: Well-developed well-nourished male in no acute distress SKIN: Warm and dry. There is an area of induration and erythema to the medial aspect of the right leg at the level of the knee joint. There is no fluctuance or drainage. HEAD: Atraumatic. Normocephalic. EYES: Pupils equal and round. No scleral icterus. No injection or drainage. ENT: No nasal bleeding or discharge. Mucous membranes pink and moist. NECK: Trachea midline. No JVD. CARDIOVASCULAR: Regular rate and rhythm. No murmur appreciated. RESPIRATORY: No accessory muscle use. Clear to auscultation. Breath sounds equal bilaterally. GASTROINTESTINAL: Abdomen soft, non-tender, nondistended. Hepatic and splenic margins not palpable. MUSCULOSKELETAL: No obvious deformities. Skin as noted above. There is no lower extremity pitting edema. Patient maintains full range of motion of the right hip, knee, ankle and foot. There is no joint effusion in the right knee. The knee joint itself is nontender and nonerythematous. 2+ dorsalis pedis and posterior tibial pulses. There is no inguinal lymphadenopathy. NEUROLOGICAL: Awake and alert. No obvious cranial nerve deficits. Motor grossly within normal limits. Normal speech. Data Data Last Documented VS Vital Signs Date Time Temp Pulse Resp B/P (MAP) Pulse Ox O2 Delivery O2 Flow Rate FiO2 08/28/17 20:02 92 18 08/28/17 20:02 98.2 144/68 (93) 97 Room Air Orders Orders Sepsis Workup Initiated (08/28/17 ) Complete Blood Count With Diff (08/28/17 20:12) Comprehensive Metabolic Panel (08/28/17 20:12) Prothrombin Time / Inr (Pt) (08/28/17 20:12) Act Partial Throm Time (Ptt) (08/28/17 20:12) Lactic Acid Sepsis Protocol (08/28/17 20:12) Blood Culture (08/28/17 20:12) Ecg Monitoring (08/28/17 20:12) Iv Access Insert/Monitor (08/28/17 20:12) Oximetry (08/28/17 20:12) Oxygen Administration (08/28/17 20:12) Us Leg Soft Tissue (08/28/17 ) Sodium Chlor 0.9% 1000 Ml Inj (Ns 1000 M (08/28/17 20:12) Vancomycin Inj (Vancomycin Inj) (08/28/17 21:15) Piperacil-Tazo 3.375 Gm Premix (Zosyn 3. (08/28/17 21:15) Ketorolac Inj (Toradol Inj) (08/28/17 22:45) Labs Laboratory Tests Test 08/28/17 20:20 White Blood Count 9.0 TH/MM3 Red Blood Count 4.40 MIL/MM3 Hemoglobin 12.9 GM/DL Hematocrit 38.3 % Mean Corpuscular Volume 87.0 FL Mean Corpuscular Hemoglobin 29.2 PG Mean Corpuscular Hemoglobin Concent 33.6 % Red Cell Distribution Width 14.7 % Platelet Count 171 TH/MM3 Mean Platelet Volume 9.7 FL Neutrophils (%) (Auto) 72.7 % Lymphocytes (%) (Auto) 18.1 % Monocytes (%) (Auto) 7.6 % Eosinophils (%) (Auto) 0.8 % Basophils (%) (Auto) 0.8 % Neutrophils # (Auto) 6.6 TH/MM3 Lymphocytes # (Auto) 1.6 TH/MM3 Monocytes # (Auto) 0.7 TH/MM3 Eosinophils # (Auto) 0.1 TH/MM3 Basophils # (Auto) 0.1 TH/MM3 CBC Comment DIFF FINAL Differential Comment Prothrombin Time 9.3 SEC Prothromb Time International Ratio 0.9 RATIO Activated Partial Thromboplast Time 21.5 SEC Blood Urea Nitrogen 8 MG/DL Creatinine 0.85 MG/DL Random Glucose 117 MG/DL Total Protein 6.8 GM/DL Albumin 3.1 GM/DL Calcium Level 9.0 MG/DL Alkaline Phosphatase 82 U/L Aspartate Amino Transf (AST/SGOT) 17 U/L Alanine Aminotransferase (ALT/SGPT) 22 U/L Total Bilirubin 0.1 MG/DL Sodium Level 141 MEQ/L Potassium Level 3.7 MEQ/L Chloride Level 104 MEQ/L Carbon Dioxide Level 24.2 MEQ/L Anion Gap 13 MEQ/L Estimat Glomerular Filtration Rate 104 ML/MIN MDM Medical Decision Making Medical Screen Exam Complete: Yes Emergency Medical Condition: Yes Medical Record Reviewed: Yes Differential Diagnosis Cellulitis, abscess, lymphangitis, erysipelas, septic arthritis Narrative Course Physical examination reveals an area of induration, cellulitis of the medial right leg. An ultrasound of the area will be obtained to rule out abscess. Lab work, blood cultures will be obtained. Ultrasound reveals superficial thrombophlebitis in the saphenous vein, likely secondary to IV Infiltration. no evidence of abscess. CBC reveals a hemoglobin of 12.9 otherwise unremarkable. CMP is unremarkable. The patient was given IV vancomycin and Zosyn. At this point in time the plan is to discharge him with Bactrim and Keflex prescriptions. Discussed signs and symptoms that would warrant returning to the emergency room. He is stable for discharge. Diagnosis Primary Impression: Superficial thrombophlebitis Additional Impression: Cellulitis Additional Instructions: Warm compresses to the affected area several times a day 15-20 minutes at a time. Elevate. Ibuprofen every 6-8 hours per dosing instructions on bottle, take with meals. Take the antibiotics exactly as prescribed. Return for any acutely new or worsening symptoms such as increasing redness, red streaks up the leg, increasing swelling, fevers. Med/Other Pt SpecificInfo: Prescription(s) given Scripts Cephalexin (Keflex) 500 Mg Cap 500 MG PO Q8H for Infection, #30 CAP 0 Refills Prov: Carmen Oropeza MD 08/28/17 Sulfamethoxazole-Trimethoprim (Bactrim DS) 800-160 Mg Tab 1 TAB PO BID for Infection, #20 TAB 0 Refills Prov: Carmen Oropeza MD 08/28/17 Disposition: 01 DISCHARGE HOME Condition: Stable Nathan Capone August 28, 2017 20:16
[2017-08-28 20:44] LABS: AUTOMATED NEUTROPHIL # 6.6 TH/MM3 (1.8-7.7); BASOPHIL # 0.1 TH/MM3 (0-0.2); BASOPHIL % 0.8 % (0.0-2.0); EOSINOPHIL # 0.1 TH/MM3 (0-0.4); EOSINOPHIL % 0.8 % (0.0-4.0); HEMATOCRIT 38.3 % (39.0-51.0); HEMOGLOBIN 12.9 GM/DL (13.0-17.0); LYMPH % 18.1 % (9.0-44.0); LYMPHOCYTE # 1.6 TH/MM3 (1.0-4.8); MEAN CORPUSCULAR HEMOGLOBIN 29.2 PG (27.0-34.0); MEAN CORPUSCULAR HGB CONC 33.6 % (32.0-36.0); MEAN PLATELET VOLUME 9.7 FL (7.0-11.0); MONO % 7.6 % (0.0-8.0); MONOCYTE # 0.7 TH/MM3 (0-0.9); NEUT % 72.7 % (16.0-70.0); PLATELET COUNT 171 TH/MM3 (150-450); RED CELL DISTRIBUTION WIDTH 14.7 % (11.6-17.2)
[2017-08-28 20:59] LABS: INTERNATIONAL NORMALIZED RATIO 0.9 RATIO; PROTHROMBIN TIME - PATIENT 9.3 SEC (9.8-11.6)
[2017-08-28 21:04] LABS: ALBUMIN 3.1 GM/DL (3.4-5.0); ALT (GPT) 22 U/L (12-78); AST (GOT) 17 U/L (15-37); BICARBONATE 24.2 MEQ/L (21.0-32.0); BLOOD UREA NITROGEN 8 MG/DL (7-18); CHLORIDE 104 MEQ/L (98-107); CREATININE 0.85 MG/DL (0.60-1.30); GLOMERULAR FILTRATION RATE 104 ML/MIN (>89); GLUCOSE,RANDOM 117 MG/DL (74-106); SODIUM (NA) 141 MEQ/L (136-145)
[2017-08-28 21:07] LABS: ALKALINE PHOSPHATASE 82 U/L (45-117); TOTAL BILIRUBIN ADULT 0.1 MG/DL (0.2-1.0); TOTAL PROTEIN 6.8 GM/DL (6.4-8.2)
[2017-08-28] MEDS ORDERED: PIPERACIL-TAZO 3.375 GM PREMIX 50 ML IV ONE (21:15)
[2017-08-28] MEDS ORDERED: VANCOMYCIN INJ 1,000 MG in SODIUM CHLOR 0.9% 250 ML INJ 250 ML IV ONE (21:15)
[2017-08-28] MEDS ORDERED: CEPH-460 PO (22:33)
[2017-08-28] MEDS ORDERED: BACT800T5 PO (22:33)
[2017-08-28] MEDS ORDERED: KETOROLAC TROMETHAMINE 30 MG/ML (IVP) VIAL IV PUSH ONE (22:45)
--- NOTE | 2017-08-28 22:45 | RADRPT ---
EXAM DATE: 08/28/2017 10:36 PM EDT AGE/SEX: 32 years / Male INDICATIONS: Abscess. CLINICAL DATA: This is the patient's initial encounter. Patient reports that signs and symptoms have been present for 4 - 6 days and indicates a pain score of 6/10. Location: Laterality: MEDICAL/SURGICAL HISTORY: . Seziures. PTSD. Kidney stones. Depression. Anxiety. Suicide attempt . Substance use. . Open heart surgery. COMPARISON: No prior [facility] exams available for comparison. FINDINGS: The anterior thigh was examined. There is diffuse soft tissue swelling seen. The greater saphenous ve in demonstrates no flow and echogenic thrombus within the lumen. On color Doppler, there is mild diff use increased flow. CONCLUSION: 1. No discrete fluid collections seen. 2. Soft tissue swelling about the anterior thigh and thrombus with absent flow within the greater sa phenous vein. Electronically signed by: Keith Delgadillo MD 08/28/2017 10:43 PM EDT
== END 2017-08-29 00:34 | disposition home or self-care (01) ==
LOC: NEPE 19:29
DX: I80.01 Phlebitis and thrombophlebitis of superficial vessels of right lower extremity (principal); F17.200 Nicotine dependence, unspecified, uncomplicated
CPT/HCPCS: 76882; 80053; 85025; 85610; 85730; 87040; 96361; 96374; 96375; 99284; J1885; J2543; J3370; J7030; J7050

== ENCOUNTER 2017-10-22 01:13 | Observation (INO) ==
[2017-10-22] MEDS ORDERED: Sod Chloride 0.9% Inj 1,000 ML IV.SIG ONE (01:29)
[2017-10-22] MEDS ORDERED: Sod Chloride 0.9% Inj 1,000 ML IV.CONT SCH ×2 (01:30→03:45)
[2017-10-22 01:46] LABS: Baso # (Auto) 0.1 th/mm3 (0.0-0.2); Baso % (Auto) 2.1 % (0.0-2.0); Eos % (Auto) 0.7 % (0.0-4.0); Hematocrit 45.9 % (39.0-51.0); Hemoglobin 15.5 gm/dL (13.0-17.0); Lymph # (Auto) 0.8 th/mm3 (1.0-4.8); Lymph % (Auto) 11.6 % (9.0-44.0); Mean Corpuscular HGB Conc 33.7 % (32.0-36.0); Mean Corpuscular Hemoglobin 29.3 pg (27.0-34.0); Mean Platelet Volume 9.3 fL (7.0-11.0); Mono # (Auto) 0.5 th/mm3 (0.0-0.9); Mono % (Auto) 7.4 % (0.0-8.0); Neut # (Auto) 5.3 th/mm3 (1.8-7.7); Neut % (Auto) 78.2 % (16.0-70.0); Platelet Count 204 th/mm3 (150-450); Red Blood Count 5.28 mil/mm3 (4.50-5.90); White Blood Count 6.8 th/mm3 (4.0-11.0)
[2017-10-22 02:01] LABS: Activated Partial Thrombo Time 29.2 sec (24.3-30.1); Prothrombin Time 10.3 sec (9.8-11.6)
[2017-10-22 02:12] LABS: Alanine Aminotransferase 26 U/L (12-78); Albumin 4.2 g/dL (3.4-5.0); Alkaline Phosphatase 113 U/L (45-117); Anion Gap 12 meq/L (5-15); Aspartate Aminotransferase 36 U/L (15-37); Blood Urea Nitrogen 20 mg/dL (7-18); C-Reactive Protein 5.19 mg/dL (0.00-0.30); Calcium 9.2 mg/dL (8.5-10.1); Carbon Dioxide 21.3 meq/L (21.0-32.0); Chloride 105 meq/L (98-107); Creatine Kinase 220 U/L (39-308); Glomerular Filtration Rate Greater Than 89 mL/min (>89); Glucose,Random 87 mg/dL (74-106); Lipase 85 U/L (73-393); Sodium 138 meq/L (136-145); Total Protein 8.5 g/dL (6.4-8.2)
[2017-10-22 02:25] LABS: Creatine Kinase MB 3.7 ng/mL (0.5-3.6)
--- NOTE | 2017-10-22 02:37 | XR ---
EXAM DATE: 10/22/2017 2:33 AM EDT AGE/SEX: 32 years / Male INDICATIONS: Chest pain. CLINICAL DATA: This is the patient's initial encounter. Patient reports that signs and symptoms have been present for 1 day and indicates a pain score of Nonresponsive. MEDICAL/SURGICAL HISTORY: None. None. COMPARISON: No prior exams available for comparison. FINDINGS: A single AP view of the chest demonstrates the lungs to be symmetrically aerated without evidence of mass, infiltrate or effusion. The cardiomediastinal contours are unremarkable. Osseous structures a re intact. CONCLUSION: No acute findings. Partial fusion of the left fifth and sixth ribs. Clip overlies left mediastinum. Electronically signed by: Todd Galvez MD 10/22/2017 2:35 AM EDT
--- NOTE | 2017-10-22 02:48 | ED ---
HPI General Chief complaint: Chest Pain Stated complaint: Chest pain Time Seen by Provider: 10/22/17 01:29 Source: patient Mode of arrival: EMS Limitations: no limitations History of Present Illness HPI narrative: The patient is a 32 year old male who presents to the [facility] emergency department with a history of chest pain that began approximately 30 minutes prior to arrival. The patient reports that he was sitting when it began. He reports that he does have a history of IV drug use over the last 2-3 months. He reports that he last used methamphetamine by injection 2 hours prior to arrival. He reports that he also occasionally will inject heroin, however he did not do so today. The patient reports that over the last couple of days he has had interim assertion. He denies having any known fevers or chills. He reports that he does live outside, therefore as it is a summer he is always hot he denies having any significant cough or congestion. The patient is noted to have a rash. He reports that it began 4-5 days ago and started on his back and then has spread more widely. He reports that it is painful and he describes it as a burning sensation. Otherwise on review of systems, the patient denies having any neck or back pain, abdominal pain, vomiting, diarrhea, urinary symptoms, or neurologic symptoms. Related Data Home Medications Medication Instructions Recorded Confirmed No Known Home Medications 10/22/17 10/22/17 Allergies Allergy/AdvReac Type Severity Reaction Status Date / Time codeine Allergy Intermediate itch Unverified 08/22/17 04:56 tramadol Allergy Intermediate seizures Unverified 08/22/17 04:56 Review of Systems ROS Unobtainable All other systems reviewed negative except as stated in HPI Constitutional Denies fever(s) Eyes Denies change in vision ENT Denies headache(s) and Denies nasal congestion Cardiovascular Denies chest pain Respiratory Denies dyspnea Gastrointestinal Denies abdominal pain Genitourinary Denies difficulty urinating Musculoskeletal Denies myalgias Integumentary/Breasts Denies rash Neurologic Denies headache(s) Psychiatric Denies depression Endocrine Denies polyuria Hematologic/Lymphatic Denies easy bruising PMFSH History History Provided By: Patient Medical History Medical History IV drug user (Acute) Patient denies medical problems (Acute) Surgical History Surgical History Heart valve replaced (Acute) Social History Social History Substance History: Active Abuse Second Hand Smoke Exposure: Yes Smoking Status: Current every day smoker Tobacco Type: Cigarettes Cigarettes Per Day: 20 How Often Do You Have a Drink Containing Alcohol: 2 to 3 times a week Exam Const General: cooperative, disheveled and lethargic Nutritional Appearance: well nourished Orientation: alert, awake and oriented x3 HENMT Head: normocephalic and atraumatic Nose: no nasal discharge and no epistaxis Mouth: moist mucous membranes Teeth and gingiva: caries Throat: posterior oropharynx normal Eyes Sclera: normal sclerae Pupils: PERRL Neck Neck: no meningeal signs, trachea midline and no JVD Resp Effort & Inspection: no use of accessory muscles Auscultation: clear to auscultation bilaterally Cardio Rate: regular rate Rhythm: regular rhythm Heart Sounds: no murmurs GI Inspection: non-distended Palpation: soft, no hepatosplenomegaly and nontender Back/Spine/Pelvis Back: no CVA tenderness Cervical Spine: normal cervical lordosis Thoracic/Lumbar Spine: thoracic and lumbar spine normal to inspection Skin General: dry skin (warm) Rashes: rashes noted (Erythematous papular rash with blanching noted with pressing the area along the chest, back, upper extremities, no palm or sole involvement.) Neuro General: alert and other (Drowsy on examination, repeatedly has to be redirected to do a formal neurologic exam) Cranial Nerves: CN's II-XI intact bilaterally Speech: speech normal Motor: no movement abnormalities noted Sensory Exam: no sensory deficits noted Extrem General: normal to inspection, no clubbing, no cyanosis and no edema Psych Mood: congruent mood Affect: normal affect Judgment: judgment good Course Hospital Course: During the course of the patient's emergency department visit, the patient's history, examination, and differential diagnosis were reviewed with the patient. The patient was placed on a seedling sorter with oximetry and frequent blood pressure monitoring. The patient had IV access obtained and blood work sent for analysis. Blood cultures 2 were done, lactic acid was sent for analysis, CRP was ordered. The patient was initially provided normal saline 1 L IV fluid bolus followed by normal saline at 1 25 mL/h, Zosyn and vancomycin were administered as broad- spectrum antibiotic coverage for concern for endocarditis. Consultations Consultation #1: The patient's case including history, pertinent physical examination findings, and laboratory studies were discussed with Dr. Qiu. It was agreed that the patient would be admitted to the hospitalist service. Initial Documented Vital Signs Temperature 97.7 F 10/22/17 01:15 Pulse Rate 64 10/22/17 01:15 Respiratory Rate 15 10/22/17 01:15 Blood Pressure 134/74 10/22/17 01:15 Pulse Oximetry 100 10/22/17 01:15 Last Documented Vital Signs Temperature 97.7 F 10/22/17 01:15 Pulse Rate 64 10/22/17 11:00 Respiratory Rate 16 10/22/17 11:00 Blood Pressure 133/68 10/22/17 11:00 Pulse Oximetry 99 10/22/17 11:00 Medical Decision Making MDM Narrative Medical decision making narrative: Diagnostic evaluation was started regarding this patient's current symptoms. Blood cultures 2 were collected, lactic acid was sent for analysis. The patient's chest x-ray showed no acute abnormality. Partial fusion of the left fifth and sixth rib, clips overlying the left mediastinum from his prior cardiac surgery. The patient's laboratory studies are remarkable for normal white blood cell count of 6.8 with a left shift of 78.2 neutrophils, hemoglobin is 15.5, platelets 204, PT 10.3, PTT 29.2, chemistry is remarkable for a troponin I that is less than 0.02, total protein 8.5, CPK 220, lactic acid 0.9, lipase 85, CK- MB is 3.7, C-reactive protein is elevated at 5.19, BUN 20. The patient will be admitted to the hospitalist service for further evaluation for chest pain, suspected bacteremia associated with IV drug use. The patient's results were discussed with the patient, including the plan of care. I explained that further testing and/ or monitoring is indicated based on the patient's history, examination, and/ or laboratory findings. Therefore, I recommended admission for additional evaluation. The patient expressed understanding and was agreeable with this plan. The patient was admitted to the hospital in stable condition and sent to a bed under the care of [facility] service. Lab Data Result diagrams: 10/22/17 01:30 10/22/17 01:30 Lab Results 10/22/17 10/22/17 10/22/17 Range/Units 01:30 01:30 01:30 WBC 6.8 (4.0-11.0) th/mm3 RBC 5.28 (4.50-5.90) mil/mm3 Hgb 15.5 (13.0-17.0) gm/dL Hct 45.9 (39.0-51.0) % MCV 87.0 (80.0-100.0) fL MCH 29.3 (27.0-34.0) pg MCHC 33.7 (32.0-36.0) % RDW 16.0 (11.6-17.2) % Plt Count 204 (150-450) th/mm3 MPV 9.3 (7.0-11.0) fL Neut % (Auto) 78.2 H (16.0-70.0) % Lymph % (Auto) 11.6 (9.0-44.0) % Ceiba % (Auto) 7.4 (0.0-8.0) % Eos % (Auto) 0.7 (0.0-4.0) % Baso % (Auto) 2.1 H (0.0-2.0) % Neut # (Auto) 5.3 (1.8-7.7) th/mm3 Lymph # (Auto) 0.8 L (1.0-4.8) th/mm3 Ceiba # (Auto) 0.5 (0.0-0.9) th/mm3 Eos # (Auto) 0.0 (0.0-0.4) th/mm3 Baso # (Auto) 0.1 (0.0-0.2) th/mm3 WBC Differential . Differential Comment Auto diff final ESR (0-15) mm/hr PT 10.3 (9.8-11.6) sec INR 1.0 Ratio APTT 29.2 (24.3-30.1) sec Sodium 138 (136-145) meq/L Potassium 4.0 (3.5-5.1) meq/L Chloride 105 (98-107) meq/L Carbon Dioxide 21.3 (21.0-32.0) meq/L Anion Gap 12 (5-15) meq/L BUN 20 H (7-18) mg/dL Creatinine 0.86 (0.60-1.30) mg/dL Estimated GFR Greater than 89 (>89) mL/min Random Glucose 87 (74-106) mg/dL Lactic Acid (0.4-2.0) mmol/L Calcium 9.2 (8.5-10.1) mg/dL Total Bilirubin 0.8 (0.2-1.0) mg/dL AST 36 (15-37) U/L ALT 26 (12-78) U/L Alkaline Phosphatase 113 (45-117) U/L Total Creatine Kinase 220 (39-308) U/L CK-MB (CK-2) 3.7 H (0.5-3.6) ng/mL Troponin I Less than 0.02 L (0.02-0.05) ng/mL C-Reactive Protein 5.19 H (0.00-0.30) mg/dL Total Protein 8.5 H (6.4-8.2) g/dL Albumin 4.2 (3.4-5.0) g/dL Lipase 85 (73-393) U/L Serum Alcohol Less than 3 (0-5) mg/dL 10/22/17 10/22/17 Range/Units 01:30 01:30 WBC (4.0-11.0) th/mm3 RBC (4.50-5.90) mil/mm3 Hgb (13.0-17.0) gm/dL Hct (39.0-51.0) % MCV (80.0-100.0) fL MCH (27.0-34.0) pg MCHC (32.0-36.0) % RDW (11.6-17.2) % Plt Count (150-450) th/mm3 MPV (7.0-11.0) fL Neut % (Auto) (16.0-70.0) % Lymph % (Auto) (9.0-44.0) % Ceiba % (Auto) (0.0-8.0) % Eos % (Auto) (0.0-4.0) % Baso % (Auto) (0.0-2.0) % Neut # (Auto) (1.8-7.7) th/mm3 Lymph # (Auto) (1.0-4.8) th/mm3 Ceiba # (Auto) (0.0-0.9) th/mm3 Eos # (Auto) (0.0-0.4) th/mm3 Baso # (Auto) (0.0-0.2) th/mm3 WBC Differential Differential Comment ESR 15 (0-15) mm/hr PT (9.8-11.6) sec INR Ratio APTT (24.3-30.1) sec Sodium (136-145) meq/L Potassium (3.5-5.1) meq/L Chloride (98-107) meq/L Carbon Dioxide (21.0-32.0) meq/L Anion Gap (5-15) meq/L BUN (7-18) mg/dL Creatinine (0.60-1.30) mg/dL Estimated GFR (>89) mL/min Random Glucose (74-106) mg/dL Lactic Acid 0.9 (0.4-2.0) mmol/L Calcium (8.5-10.1) mg/dL Total Bilirubin (0.2-1.0) mg/dL AST (15-37) U/L ALT (12-78) U/L Alkaline Phosphatase (45-117) U/L Total Creatine Kinase (39-308) U/L CK-MB (CK-2) (0.5-3.6) ng/mL Troponin I (0.02-0.05) ng/mL C-Reactive Protein (0.00-0.30) mg/dL Total Protein (6.4-8.2) g/dL Albumin (3.4-5.0) g/dL Lipase (73-393) U/L Serum Alcohol (0-5) mg/dL Imaging Data Radiologist's impression: Chest X-Ray 10/22/17 01:29 CONCLUSION: No acute findings. Partial fusion of the left fifth and sixth ribs. Clip overlies left mediastinum. ECG Data Attestation: I personally reviewed and interpreted this ECG as follows: Interpretation: The patient had an EKG done on arrival that shows a sinus rhythm with a short LA interval heart rate of 63, QRS duration 86 ms, QTC [address] segments in V1, V2, T waves are inverted in aVL , V1, V2. Discharge Plan Discharge Disposition Patient Disposition: 30 Still Patient Discharge Condition Condition: Good Discharge Order Discharge Orders: Discharge Order (Routine); Ordered 10/22/17 Ordered By: Andrew De Oliveira Discharge Details Anticipated Discharge Date: 10/22/17 Physicians Team ED Provider: Carmen Oropeza Primary Care Provider: UNKNOWN, Attending Provider: Andrew De Oliveira Status ED Status: Left Department Discharge Information Discharge Date/Time: 10/22/17 16:04
[2017-10-22] MEDS ORDERED: Piperacil/Tazo 3.375 GM Premix 50 ML IV.SIG ONE (03:06)
[2017-10-22] MEDS ORDERED: Vancomycin Inj 1 GM/200 ML PIGGYBACK IV.SIG ONE (03:06)
[2017-10-22] MEDS ORDERED: Temazepam 15 MG Capsule PO PRN (03:45)
[2017-10-22] MEDS ORDERED: Acetaminophen 325 MG Tablet PO PRN (03:45)
[2017-10-22] MEDS ORDERED: Bisacodyl 10 MG Supp RECTAL PRN (03:45)
[2017-10-22] MEDS ORDERED: Morphine Inj 4 MG/ML Vial IV.PUSH PRN (04:00)
--- NOTE | 2017-10-22 04:10 | P.HPIM ---
History of Present Illness Primary Care Physician: UNKNOWN History of Present Illness: This is a 32-year-old male with a PMH of Tobacco Abuse, IVDU and h/o Heart Surgery as a child who presented to the ER w/ complaints of chest pain x2 days. States he relapsed on IVDU approx 2 months ago w/ Heroin and Meth. Chest pain x2 days, however progressively worse this evening. Chest pain substernal, moderate-severe, 8/10, non-radiating. Reports subjective fever, chills. No cough, SOB or sick contacts. Also notes rash to shoulders/back, non-pruritic. On arrival, BP 134/74, HR 64, O2 sat 100% on RA, Afebrile. CBC unremarkable. INR 1.0. Chemistry essentially unremarkable except for BUN 20. Troponin negative. CRP 5.19. Alcohol negative. CXR with no acute findings. S/p Blood Cultures, Vanc/Zosyn in ER. - Diagnosis (1) Chest pain (2) IVDU (intravenous drug user) Inpatient Certification: I certify that the inpatient services were ordered in accordance with Medicare regulations governing the order. This includes certification that hospital inpatient services are reasonable and necessary and in the case of services not specified as inpatient-only under 42 CFR 419.22(n), that they are appropriately provided as inpatient services in accordance to with the 2-midnight benchmark under 43 CFR 412.3(e) Review of Systems All other systems reviewed negative except as stated in [facility] - History History Provided By: Patient - Medical History Medical History: Medical History (Last Updated 10/22/17 @ 04:00 by Carmen Oropeza MD) IV drug user Patient denies medical problems - Surgical History Surgical History: Surgical History (Last Updated 10/22/17 @ 03:01 by Geoff Simpson) Heart valve replaced - Tobacco History Second Hand Smoke Exposure: Yes Tobacco Use In Past 30 Days: Yes Smoking Status: Current every day smoker Tobacco Type: Cigarettes Cigarettes Per Day: 20 - Alcohol History How Often Do You Have a Drink Containing Alcohol: 2 to 3 times a week - Substance Use History Substance History: Active Abuse - Substance Use Type Methamphetamine Status: Active Route Used: Intravenously Heroin Status: Active Route Used: Intravenously - Immunization History Tetanus Immunization: >5 Years Hx Influenza Vaccine This Season: No Medications and Allergies Active Medications: Active Medications Acetaminophen (Tylenol) 650 mg PO Q4H PRN PRN Reason: Temp > 100.4 Al Hydroxide/Mg Hydroxide (Milk Of Magnesia Liq) 30 ml PO Q12H PRN PRN Reason: Mild Constipation Bisacodyl (Dulcolax Supp) 10 mg RECTAL DAILY PRN PRN Reason: SEVERE CONSITIPATION Sodium Chloride (Ns Inj) 1,000 mls @ 125 mls/hr IV.CONT .Q8H RAJ Stop: 10/22/17 09:29 Last Admin: 10/22/17 01:39 Dose: 125 mls/hr Vancomycin/Sodium Chloride (Vancomycin Inj) 1 gm in 200 mls @ 200 mls/hr IV.SIG ONCE ONE Stop: 10/22/17 04:05 Sodium Chloride (Ns Inj) 1,000 mls @ 100 mls/hr IV.CONT .Q10H RAJ Lactulose (Lactulose Liq) 30 ml PO DAILY PRN PRN Reason: SEVERE CONSITIPATION Metoclopramide HCl (Reglan Inj) 5 mg IV.PUSH Q6HR PRN; Protocol PRN Reason: NAUSEA OR VOMITING Morphine Sulfate (Morphine Inj) 2 mg IV.PUSH Q4H PRN PRN Reason: PAIN SCALE 6 TO 10 Senna/Docusate Sodium (Patience-Colace) 1 tab PO BID RAJ Sennosides (Senokot) 17.2 mg PO Q12H PRN PRN Reason: Moderate Constipation Sodium Chloride (Ns Flush) 2 ml IV.FLUSH PRN PRN PRN Reason: FLUSH AFTER USING IV ACCESS Temazepam (Restoril) 15 mg PO HS PRN PRN Reason: INSOMNIA Allergies Allergy/AdvReac Type Severity Reaction Status Date / Time codeine Allergy Intermediate itch Unverified 08/22/17 04:56 tramadol Allergy Intermediate seizures Unverified 08/22/17 04:56 Exam Vital signs: Vital Signs 10/22/17 01:15 10/22/17 02:00 Temperature 97.7 F Pulse Rate 64 Respiratory Rate 15 Blood Pressure 134/74 Pulse Oximetry 100 100 Intake & Output 10/21/17 10/21/17 10/22/17 06:59 18:59 06:59 Weight 75 kg Narrative: PE: GENERAL: Young white male in no acute distress, however appears unwell/sick, shivering. HEENT: PERRLA, EOMI. No scleral icterus or conjunctival pallor. No lid lag or facial droop. CARDIOVASCULAR: Regular rate and rhythm. No obvious murmurs to auscultation. No chest tenderness to palpation. RESPIRATORY: No obvious rhonchi or wheezing. Clear to auscultation. Breath sounds equal bilaterally. GASTROINTESTINAL: Abdomen soft, non-tender, nondistended. BS normal. MUSCULOSKELETAL: Extremities without clubbing, cyanosis, or edema. No obvious deformities. Erythematous papular rash right shoulder/back NEUROLOGICAL: Awake, alert and oriented x4. No focal neurologic deficits. Moving both upper and lower extremities spontaneously. Results - Labs CBC & Chem 7: 10/22/17 01:30 10/22/17 01:30 Labs: Short CBC 10/22/17 Range/Units 01:30 WBC 6.8 (4.0-11.0) th/mm3 Hgb 15.5 (13.0-17.0) gm/dL Hct 45.9 (39.0-51.0) % Plt Count 204 (150-450) th/mm3 BMP 10/22/17 01:30 Sodium 138 Potassium 4.0 Chloride 105 Carbon Dioxide 21.3 BUN 20 H Creatinine 0.86 Calcium 9.2 Cardiac Enzymes 10/22/17 Range/Units 01:30 Total Creatine Kinase 220 (39-308) U/L CK-MB (CK-2) 3.7 H (0.5-3.6) ng/mL Troponin I Less than 0.02 L (0.02-0.05) ng/mL Liver Function 10/22/17 Range/Units 01:30 Total Bilirubin 0.8 (0.2-1.0) mg/dL AST 36 (15-37) U/L ALT 26 (12-78) U/L Alkaline Phosphatase 113 (45-117) U/L Albumin 4.2 (3.4-5.0) g/dL - Imaging Impressions Chest X-Ray 10/22/17 01:29 CONCLUSION: No acute findings. Partial fusion of the left fifth and sixth ribs. Clip overlies left mediastinum. Caprini VTE Risk Assessment Caprini VTE Risk Assessment: No/Low Risk (score <= 1) Caprini Risk Assessment Model: Point Value = 1 Point Value = 2 Point Value = 3 Point Value = 5 Age 41-60 Minor surgery BMI > 25 kg/m2 Swollen legs Varicose veins or History of unexplained or recurrent spontaneous Oral contraceptives or hormone replacement Sepsis (< 1 month) Serious lung disease, including pneumonia (< 1 month) Abnormal pulmonary function Acute myocardial infarction Congestive heart failure (< 1 month) History of inflammatory bowel disease Medical patient at bed rest Age 61-74 Arthroscopic surgery Major open surgery (> 45 min) Laparoscopic surgery (> 45 min) Malignancy Confined to bed (> 72 hours) Immobilizing plaster cast Central venous access Age >= 75 History of VTE Family history of VTE Factor V Leiden Prothrombin [id number] Lupus anticoagulant Anticardiolipin antibodies Elevated serum homocysteine Heparin-induced thrombocytopenia Other congenital or acquired thrombophilia Stroke (< 1 month) Elective arthroplasty Hip, pelvis, or leg fracture Acute spinal cord injury (< 1 month) Prophylaxis Regimen: Total Risk Factor Score Risk Level Prophylaxis Regimen 0-1 Low Early ambulation 2 Moderate Order ONE of the following: *Sequential Compression Device (SCD) *Heparin 5000 units SQ BID 3-4 Higher Order ONE of the following medications: *Heparin 5000 units SQ TID *Enoxaparin/Lovenox 40 mg SQ daily (WT < 150 kg, CrCl > 30 mL/min) *Enoxaparin/Lovenox 30 mg SQ daily (WT < 150 kg, CrCl > 10-29 mL/min) *Enoxaparin/Lovenox 30 mg SQ BID (WT < 150 kg, CrCl > 30 mL/min) AND/OR *Sequential Compression Device (SCD) 5 or more Highest Order ONE of the following medications: *Heparin 5000 units SQ TID (Preferred with Epidurals) *Enoxaparin/Lovenox 40 mg SQ daily (WT < 150 kg, CrCl > 30 mL/min) *Enoxaparin/Lovenox 30 mg SQ daily (WT < 150 kg, CrCl > 10-29 mL/min) *Enoxaparin/Lovenox 30 mg SQ BID (WT < 150 kg, CrCl > 30 mL/min) AND *Sequential Compression Device (SCD) Assessment and Plan - Assessment (1) Chest pain Code(s): R07.9 - Chest pain, unspecified Status: Acute (2) IVDU (intravenous drug user) Code(s): F19.90 - Other psychoactive substance use, unspecified, uncomplicated Status: Acute - Plan A/P: 1. Chest Pain: Initial trop negative, EKG w/ no acute ischemia, CXR w/ no acute findings, images reviewed by me. R/o endocarditis in light of h/o IVDU and toxic appearance on exam, follow up blood cultures, will hold off on further antibiotics for now as afebrile/no leukocytosis. Check serial cardiac enzymes for trend. Check Echo to eval for possible vegetation. 2. IVDU: +Heroin/Meth, pt counselled. Ativan prn for withdrawal. 3. DVT Prophylaxis: SCD/Teds 4. Social work for d/c planning as needed. 5. Case discussed w/ ER physician at length, labs/records/imaging reviewed by me.
[2017-10-22] MEDS ORDERED: Vancomycin Inj 1,000 MG in Sodium Chlor 0.9% Inj 250 ML IV.SIG ONE (07:02)
[2017-10-22] MEDS ORDERED: Senna/Docusate Sodium 8.6/50 MG Tablet PO SCH (09:00)
--- NOTE | 2017-10-22 17:39 | ECG ---
Date Performed: 10/22/2017 Time Performed: 00:52:10 PTAGE: 32 years EKG: Sinus rhythm WITH SHORT [place] INTERVAL POSSIBLE RIGHT VENTRICULAR CONDUCTION DELAY VOLTAGE CRITERIA FOR LVH NONSPECI FIC T-WAVE ABNORMALITY ABNORMAL ECG PREVIOUS TRACING 10/29/15 @ 22.01 Since the previous tracing, no significant change noted DOCTOR: Mario Alberto Gutierrez Interpretating Date/Time 10/22/2017 17:37:48
== END 2017-10-22 16:06 | disposition home or self-care (01) ==
LOC: NEDA 01:13 → NEPE 01:13 → NEDA 16:04
PROVIDERS: ADMIT Internal Medicine; ATTEND Internal Medicine